=== PATIENT | female | born 1940 | race Two or more races ===

== ENCOUNTER 2019-07-20 11:56 | Outpatient (CLI) | payer OTHER | END 2019-07-20 12:00 | disposition home or self-care (01) | LOC: LAB 11:56 | DX: Z00.00 Encounter for general adult medical examination without abnormal findings (principal) ==

== ENCOUNTER 2019-12-01 07:05 | Outpatient (CLI) | payer OTHER | END 2019-12-01 07:12 | disposition home or self-care (01) | LOC: SONOGRAMA 07:05 | PROVIDERS: ATTEND Urology | DX: R97.20 Elevated prostate specific antigen [PSA] (principal) ==